=== PATIENT | male | born 1995 | race American Indian/Alaskan Native ===

== ENCOUNTER 2021-04-21 10:30 | Outpatient (CLI) | payer OTHER ==
[2021-04-21 10:48] LABS: Hematocrit 27.7 % (35.5-45.6); Hemoglobin 9.5 gm/dl (11.8-15.2)
== END 2021-04-21 10:31 | disposition home or self-care (01) ==
LOC: LAB 10:30
PROVIDERS: ATTEND Internal Medicine
DX: D57.1 Sickle-cell disease without crisis (principal)
CPT/HCPCS: 36415; 85014; 85018